=== PATIENT | male | born 1965 | race Caucasian/White ===

== ENCOUNTER 2021-09-23 05:35 | Day surgery (SDC) | payer OTHER ==
[2021-09-20 15:21] VITALS: BMI 34.7
[2021-09-23 07:22] VITALS: TEMP 97.8
[2021-09-23] MEDS ORDERED: APIXABAN 5 MG TABLET PO ONE (07:45)
[2021-09-23 09:16] VITALS: BP 129/87; PULSE 63
== END 2021-09-23 09:16 | disposition home or self-care (01) ==
LOC: JASU-ENDO 05:35
PROVIDERS: ATTEND Internal Medicine
PROC: 5A2204Z Restoration of Cardiac Rhythm, Single (ICD-10-PCS; principal; 2021-09-23 07:30)
DX: I48.91 Unspecified atrial fibrillation (principal)
CPT/HCPCS: 92960; 93005; 93010